=== PATIENT | male | born 1980 ===

== ENCOUNTER 2020-05-14 15:15 | Emergency (ER) | payer SELFPAY ==
[2020-05-14 15:40] VITALS: BP 191/111; PULSE 99; RESP 18; TEMP 36.7; O2SAT 97; BMI 40.1
--- NOTE | 2020-05-14 16:09 | W.ED.EXTPRO ---
HPI - Extremity Problem General: Chief complaint: Extremity Problem,Nontraumatic Stated complaint: metal stuck in arm Time Seen by Provider: 05/14/20 16:09 History of Present Illness: HPI Narrative: 39-year-old male patient presents to the emergency department with complaints of foreign body to the left upper arm. He reports was utilizing chainsaw yesterday when a piece of metal flew up and struck his arm. He reports pain and swelling today MD Complaint: extremity pain Onset (ago): day(s) (1) Pain Consistency: constant Location: left and upper extremity Severity scale (1-10): 5 Quality: aching Radiation: none Relieving factors: rest Exacerbating factors: range of motion Associated symptoms: Deny chest pain, fever(s) or rash Review of Systems General: Reports: 10 or more systems reviewed and unremarkable except in HPI and below Const: Denies: fever(s), chills or diaphoresis Card: Denies: chest pain, palpitations or irregular heart rhythm Resp: Denies: dyspnea, productive cough, non-productive cough or wheezing Musc: Reports: extremity pain (left arm) and extremity swelling (left upper arm); Denies: back pain, joint redness or joint warmth Skin/Breast: Denies: rash or pruritus Neuro: Denies: headache(s), weakness in extremities or behavioral changes Physical Exam Const: COMMON NORMALS: no acute distress, patient oriented x3, healthy appearing and alert GENERAL APPEARANCE: cooperative, comfortable and well hydrated Neck/C-Spine: COMMON NORMALS: full ROM and no lymphadenopathy GENERAL: Yes normal visual inspection and Yes trachea midline CERVICAL SPINE: Yes cervical ROM normal Chest: COMMONS NORMALS: normal inspection of the chest Resp: COMMON NORMALS: normal respiratory effort and clear to auscultation bilaterally AUSCULTATION: clear to auscultation bilaterally Cardio: COMMON NORMALS: regular rhythm, S1 normal heart sound present and S2 normal heart sound present RHYTHM: regular rhythm HEART SOUNDS: S1 normal heart sound present and S2 normal heart sound present GI: COMMON NORMALS: Soft to palpation and non-tender INSPECTION: Yes normal to inspection PALPATION: Yes Soft to palpation Extremity: COMMON NORMALS: normal to inspection, full ROM (left elbow) and capillary refill normal RIGHT UPPER EXTREMITY: Yes upper arm (Scattered abrasions noted, superficial, erythema with edema noted to the distal upper arm just superior to the AC space. Tenderness to touch, full range of motion noted to the right elbow. No pain with supination or pronation.) Neuro: COMMON NORMALS: patient oriented x3 and no focal motor deficits SENSORIUM/ORIENTATION: Yes alert Psych: COMMON NORMALS: mental status grossly normal, Normal thought process present, cooperative and speech normal SPEECH: Yes normal speech THOUGHT PROCESS: Normal thought process present Skin: COMMON NORMALS: no rashes or lesions noted and turgor normal GENERAL SKIN EXAM: no rashes or lesions noted and turgor normal Course Vital Signs: Vital signs: Vital Signs Temperature 98.1 F 05/14/20 15:40 Pulse Rate 99 05/14/20 15:40 Respiratory Rate 18 05/14/20 15:40 Blood Pressure 191/111 05/14/20 15:40 Pulse Oximetry 97 05/14/20 15:40 MDM - Extremity (Nontraumatic) MDM Narrative: Medical decision making narrative: 39-year-old male presents to the emergency department with complaints of left upper extremity pain, he reports metal in his arm from use of a chain saw yesterday. He reports increased swelling today. X-ray results with 2 identifiable superficial metal objects to the distal left upper arm. Ultrasound revealed 1 metal foreign fragment 5 mm deep. Discussed with patient results of findings on radiology exams. Advised antibiotics with anti-inflammatories. Encouraged to follow-up with his primary care provider this week, signs of lymphadenitis discussed with the patient. He was advised to return to the emergency department if occurs. He was also noted to be hypertensive upon exam, he was advised to log blood pressures and follow-up with primary care provider due to noted blood pressure readings. He verbalized understanding. Denies diagnosis of hypertension. Discharge Plan Discharge Patient Disposition: Home, Self-Care Clinical Impression: Foreign body (FB) in soft tissue Cellulitis Qualifiers: Site of cellulitis: extremity Site of cellulitis of extremity: upper extremity Laterality: left Qualified Code(s): L03.114 - Cellulitis of left upper limb Condition: Stable Prescriptions: New Keflex 500 mg capsule 500 mg PO Q6H 7 Days Qty: 28 RF: 0 ibuprofen 800 mg tablet 800 mg PO Q8H MDD 3 PRN (Reason: pain) Qty: 20 RF: 0 Discharge Orders: Discharge Order (Routine); Ordered 05/14/20 Ordered By: Mercy Jennifer Pool Discharge Diet: Usual diet Discharge Activity: Resume usual activity Patient Instructions: Soft Tissue Foreign Body (ED), Cellulitis (ED) Activity Restrictions/Additional Instructions: Take antibiotics until gone, take ibuprofen with food. Do not take [id number] anti-inflammatories such as Advil, Aleve or ibuprofen. May supplement with Tylenol if needed for pain. Return to the emergency department if you develop streaking of the left upper arm, worsening signs and symptoms, increased pain or fever/chills. Follow-up with your primary care physician next week for reevaluation. 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
--- NOTE | 2020-05-14 16:13 | US_ITS ---
WS: [id number] INDICATION: Foreign body TECHNIQUE: Ultrasound soft tissue FINDINGS: Ultrasound soft tissue left arm antecubital space. Small foreign body measuring 5.2 x 1.5 x 2.2 mm. Mild surrounding edema. Complex mixed echogenicity hematoma measuring 2.4 x 1.2 x 2.2 cm. No drainable fluid collections. US/US soft tissue/extremity [id number] IMPRESSION: 1. Small soft tissue foreign body measuring 5.2 mm. 2. Edema with surrounding complex hematoma. Hematoma measures 2.4 x 1.2 x 2.2 CM. 3. No drainable fluid collections
--- NOTE | 2020-05-14 16:17 | XRR_ITS ---
PROCEDURE INFORMATION: Exam: XR Left Humerus Exam date and time: 05/14/2020 4:49 PM Age: 39 years old Clinical indication: Injury or trauma; Fall; Initial encounter; Blunt trauma (contusions or hematomas; Arm, upper; Bilateral; Additional info: Fb upper arm TECHNIQUE: Imaging protocol: XR Left humerus Views: 2 or more views. COMPARISON: No relevant prior studies available. FINDINGS: Bones/joints: The bones are intact and normal alignment. Soft tissues: Two 8 mm crescent safe radiopaque densities within the soft tissues in the medial distal arm just proximal to the elbow. XR/[place] [id number] IMPRESSION: 1. No fracture. 2. Foreign bodies in the medial soft tissues of the distal arm.
[2020-05-14] MEDS: tetanus-dipt-pertussis 0.5 mL SDV IM (17:00)
[2020-05-14 17:45] VITALS: BP 176/109; PULSE 87; RESP 16; TEMP 36.8; O2SAT 95
== END 2020-05-14 17:45 | disposition home or self-care (01) ==
PROVIDERS: Emergency Provider Nurse Practitioner Family
DX: S41.142A Puncture wound with foreign body of left upper arm, initial encounter (principal); W26.8XXA Contact with other sharp object(s), not elsewhere classified, initial encounter; L03.114 Cellulitis of left upper limb; Z23 Encounter for immunization
CPT/HCPCS: 12345; 73060; 76882; 90471; 90715; 99281; 99283

== ENCOUNTER → 2020-05-21 10:16 | Outpatient (BNVA) | payer SELFPAY | PROVIDERS: Visit Provider Nurse Practitioner Family | DX: L03.114 Cellulitis of left upper limb (principal); M79.5 Residual foreign body in soft tissue | CPT/HCPCS: 73060; 73090 ==

== ENCOUNTER → 2022-10-03 12:51 | Outpatient (BNVA) | payer SELFPAY | PROVIDERS: Visit Provider Nurse Practitioner Family | DX: J11.1 Influenza due to unidentified influenza virus with other respiratory manifestations (principal) | CPT/HCPCS: 87400 ==